=== PATIENT | male | born 1955 | race Two or more races ===

== ENCOUNTER 2018-02-09 11:03 | Outpatient (CLI) | payer OTHER | END 2018-02-09 11:10 | disposition home or self-care (01) | LOC: SONOGRAMA 11:03 | DX: C61 Malignant neoplasm of prostate (principal) ==

== ENCOUNTER 2021-01-10 13:08 | Emergency (ER) | payer OTHER ==
[~2021-01-10] VITALS: Ht 195.6 cm; Wt 93.0 kg
[2021-01-10] MEDS ORDERED: XARELTO10 MG (15:46)
== END 2021-01-10 19:06 | disposition home or self-care (01) ==
LOC: ER 13:08
DX: H81.10 Benign paroxysmal vertigo, unspecified ear (principal)

== ENCOUNTER 2021-02-02 09:48 | Emergency (ER) | payer OTHER ==
[~2021-02-02] VITALS: Ht 195.6 cm; Wt 93.9 kg
[~2021-02-02 09:48] MED LIST: XARELTO10 MG
== END 2021-02-02 10:46 | disposition home or self-care (01) ==
LOC: ER 09:48
DX: M54.2 Cervicalgia (principal); M54.89 Other dorsalgia; S16.1XXS Strain of muscle, fascia and tendon at neck level, sequela; X50.0XXS Overexertion from strenuous movement or load, sequela

== ENCOUNTER 2021-05-30 08:03 | Emergency (ER) | payer OTHER ==
[~2021-05-30] VITALS: Ht 193 cm; Wt 88.5 kg
[2021-05-30] MEDS ORDERED: ECOTRIN81 MG (08:19)
== END 2021-05-30 16:20 | disposition home or self-care (01) ==
LOC: ER 08:03
DX: R42 Dizziness and giddiness (principal); Z20.822 Contact with and (suspected) exposure to COVID-19

== ENCOUNTER 2022-07-29 11:39 | Emergency (ER) | payer OTHER ==
[~2022-07-29] VITALS: Ht 195.6 cm; Wt 88.9 kg
[~2022-07-29 11:39] MED LIST changes: +ECOTRIN81 MG
[2022-07-29] MEDS ORDERED: LIPITOR40 MG PO (12:00)
[2022-07-29] MEDS ORDERED: DRAMAMINE LESS25 MG (12:01)
[2022-07-29] MEDS ORDERED: ZESTRIL10 M1 PO (12:01)
== END 2022-07-29 13:49 | disposition home or self-care (01) ==
LOC: ER 11:39
DX: M54.2 Cervicalgia (principal); Z91.013 Allergy to seafood

== ENCOUNTER 2023-04-03 08:46 | Emergency (ER) | payer OTHER ==
[~2023-04-03] VITALS: Ht 195.6 cm; Wt 89.4 kg
[~2023-04-03 08:46] MED LIST changes: +DRAMAMINE LESS25 MG; +LIPITOR40 MG PO; +ZESTRIL10 M1 PO
[2023-04-03] MEDS ORDERED: CHLORZOXAZONE375 MG PO (09:43)
== END 2023-04-03 09:46 | disposition home or self-care (01) ==
LOC: ER 08:46
DX: T50.995A Adverse effect of other drugs, medicaments and biological substances, initial encounter (principal); Z91.013 Allergy to seafood; E78.00 Pure hypercholesterolemia, unspecified; Z85.89 Personal history of malignant neoplasm of other organs and systems

== ENCOUNTER → 2023-09-01 | Emergency (ER) | payer OTHER ==
[~2023-09-01] VITALS: Ht 193 cm; Wt 88.9 kg
[~2023-09-01] MED LIST changes: +ADULT LOW DOSE81 M1 PO; +CHLORZOXAZONE375 MG PO; +LISINOPRIL5 MG PO
== END | disposition left against medical advice (07) ==
LOC: ER 23:34
DX: Z53.21 Procedure and treatment not carried out due to patient leaving prior to being seen by health care provider (principal)

== ENCOUNTER 2023-09-02 13:05 | Emergency (ER) | payer OTHER ==
[~2023-09-02] VITALS: Ht 195.6 cm; Wt 89.4 kg
[~2023-09-02 13:05] MED LIST changes: -ADULT LOW DOSE81 M1 PO; -LISINOPRIL5 MG PO
[2023-09-02] MEDS ORDERED: LISINOPRIL5 MG PO (13:32)
[2023-09-02] MEDS ORDERED: ADULT LOW DOSE81 M1 PO (13:32)
== END 2023-09-02 15:26 | disposition home or self-care (01) ==
LOC: ER 13:05
DX: B35.6 Tinea cruris (principal); Z91.013 Allergy to seafood